=== PATIENT | male | born 1960 | race Caucasian/White ===

== ENCOUNTER 2019-08-13 10:40 | Emergency (ER) | payer BC ==
[~2019-08-13] VITALS: Ht 182.9 cm; Wt 90.7 kg
[2019-08-13] MEDS ORDERED: ZOCO80TA (10:51)
[2019-08-13] MEDS ORDERED: EZET10TA21 (10:51)
[2019-08-13 11:40] LABS: BASO % 0.4 % (0.0-1.0); EOS # 0.1 10^3/uL (0.0-0.5); EOS % 1.8 % (0.0-3.0); HEMATOCRIT 45.1 % (42.0-52.0); HEMOGLOBIN 14.4 g/dl (13.5-17.5); LYMPH # 1.2 10^3/uL (1.5-5.0); LYMPH % 23.7 % (24.0-44.0); MEAN CORPUSCULAR HEMOGLOBIN 30.5 pg (27.0-33.0); MEAN CORPUSCULAR HGB CONC 31.9 g/dl (32.0-36.5); MEAN CORPUSCULAR VOLUME 95.6 fl (80.0-96.0); MONO # 0.4 10^3/uL (0.0-0.8); NEUTROPHILS # 3.4 10^3/uL (1.5-8.5); NEUTROPHILS % 66.9 % (36.0-66.0); PLATELET COUNT, AUTOMATED 235 10^3/uL (150-450); RED BLOOD COUNT 4.72 10^6/uL (4.30-6.10)
[2019-08-13 12:45] VITALS: BP 108/72
[2019-08-13 13:20] LABS: C REACTIVE PROTEIN QUANTITATIV < 0.30 MG/DL (0.00-0.30)
--- NOTE | 2019-08-13 13:26 | REPVR ---
PROCEDURE INFORMATION: Exam: CT Head Without Contrast Exam date and time: 08/13/2019 12:57 PM Age: 58 years old Clinical indication: Pain; Other: Vertigo; Headache; Additional info: Vertigo/headache TECHNIQUE: Imaging protocol: Computed tomography of the head without contrast. Radiation optimization: All CT scans at this facility use at least one of these dose optimization techniques: automated exposure control; mA and/or kV adjustment per patient size (includes targeted exams where dose is matched to clinical indication); or iterative reconstruction. COMPARISON: No relevant prior studies available. FINDINGS: Brain: No acute intracranial hemorrhage, cerebral edema, or midline shift. Ventricles: No hydrocephalus. Bones/joints: No acute fracture. Sinuses: Right frontal sinusitis is present. The paranasal sinuses are otherwise clear. Mastoid air cells: Visualized mastoid air cells are well aerated. Soft tissues: Unremarkable. IMPRESSION: 1. No acute intracranial abnormality. 2. Right frontal sinusitis Electronically signed by: Romel Ardon On 08/13/2019 13:27:10 PM
--- NOTE | 2019-08-13 13:32 | ECGEPIP ---
[facility] - ED Test Date: 2019-08-13 Pat Name: YULIA YORK Department: Room: - Gender: Male [employer]: : 1960 Requested By: RONI Mendez Order Number: [id number] Reading MD: Ирина Martinez Measurements Intervals [place] Rate: 67 P: 47 NH: 175 QRS: 56 QRSD: 103 T: 42 QT: 378 QTc: 400 Interpretive Statements SINUS RHYTHM NO PRIOR Electronically Signed on 08-13-2019 13:31:42 EST by Ирина Martinez
--- NOTE | 2019-08-13 13:35 | REPVR ---
PROCEDURE INFORMATION: Exam: CT Cervical Spine Without Contrast Exam date and time: 08/13/2019 12:57 PM Age: 58 years old Clinical indication: Neck pain TECHNIQUE: Imaging protocol: Computed tomography images of the cervical spine without contrast. Radiation optimization: All CT scans at this facility use at least one of these dose optimization techniques: automated exposure control; mA and/or kV adjustment per patient size (includes targeted exams where dose is matched to clinical indication); or iterative reconstruction. COMPARISON: No relevant prior studies available. FINDINGS: Vertebrae: No acute fracture. Alignment is anatomic. Discs/Spinal canal/Neural foramina: Central disc protrusions are present at C4-C5 and C5-C6. Disc material from 1 or both of these protrusions is migrating along the posterior aspect of the C5 vertebra. This is causing moderate spinal canal stenosis. Soft tissues: Unremarkable. Lungs: Lung apices are normal. IMPRESSION: 1. No acute abnormality. 2. Chronic findings as discussed above. Electronically signed by: Romel Ardon On 08/13/2019 13:36:13 PM
[2019-08-13 13:42] LABS: ERYTHROCYTE SEDIMENTATION RATE 7 mm/hr (0-20)
[2019-08-13 13:57] LABS: VITAMIN B12 LEVEL 462 PG/ML (247-911)
[2019-08-13] MEDS ORDERED: TOPA1TAB PO (15:47)
[2019-08-14 14:58] LABS: ANTINUCLEAR ANTIBODIES DIRECT Negative (Negative)
== END 2019-08-13 16:29 | disposition home or self-care (01) ==
LOC: M ED 10:40
DX: R51 Headache (principal); M50.221 Other cervical disc displacement at C4-C5 level; M50.222 Other cervical disc displacement at C5-C6 level; M48.02 Spinal stenosis, cervical region; J01.10 Acute frontal sinusitis, unspecified; E78.5 Hyperlipidemia, unspecified; Z79.02 Long term (current) use of antithrombotics/antiplatelets; Z79.899 Other long term (current) drug therapy